=== PATIENT | female | born 1990 | race Caucasian/White ===

== ENCOUNTER 2017-09-01 08:19 | Emergency (ER) | payer SELFPAY ==
[2017-09-01 09:04] VITALS: BP 116/72
--- NOTE | 2017-09-01 09:14 | ED ---
Throat Pain/Nasal Congestion - HPI Summary HPI Summary: 27 yr old with headache, runny nose, cough, congestion, myalgias, fever, chills. Onset a little over a day ago. The patient has a boyfriend that had same symptoms and was tested for influenza but negative. The patient verbalizes that she does not want to be tested for influenza. She denies CP, SOB. She has no other complaints. - History of Current Complaint Chief Complaint: UCGeneralIllness Time Seen by Provider: 09/01/17 09:05 - Allergies/Home Medications Allergies/Adverse Reactions: Allergies Allergy/AdvReac Type Severity Reaction Status Date / Time No Known Allergies Allergy Verified 09/01/17 09:00 Home Medications: Home Medications Pseudoephedrine HCL ER TAB* [Sudafed 12 Hour*] 120 mg PO BID 09/01/17 [History Confirmed 09/01/17] PMH/Surg Hx/FS Hx/Imm Hx - Surgical History Hx Anesthesia Reactions: No Infectious Disease History: No Infectious Disease History: Denies: Hx Clostridium Difficile, Hx Hepatitis, Hx Human Immunodeficiency Virus (HIV), Hx of Known/Suspected MRSA, Hx Shingles, Hx Tuberculosis, Hx Known/ Suspected VRE, Hx Known/Suspected VRSA, History Other Infectious Disease, Traveled Outside the [place] in Last 30 Days - Family History Known Family History: Negative: Hypertension - Social History Occupation: Employed Full-time Alcohol Use: Occasionally Substance Use Type: Reports: None Smoking Status (MU): Light Every Day Tobacco Smoker Type: Cigarettes Amount Used/How Often: 1/2 ppd Length of Time of Smoking/Using Tobacco: started ~ age 16 Review of Systems Constitutional: Negative Positive: Nasal Discharge Positive: Cough Positive: Myalgia All Other Systems Reviewed And Are Negative: Yes Physical Exam Triage Information Reviewed: Yes Vital Signs On Initial Exam: Initial Vitals Temp Pulse Resp BP Pulse Ox 98 F 98 18 116/72 99 09/01/17 08:54 09/01/17 08:54 09/01/17 08:54 09/01/17 08:54 09/01/17 08:54 Vital Signs Reviewed: Yes Appearance: Positive: Well-Appearing, No Pain Distress Skin: Positive: Warm, Skin Color Reflects Adequate Perfusion Head/Face: Positive: Normal Head/Face Inspection Eyes: Positive: EOMI ENT: Positive: Pharynx normal, Nasal congestion, Nasal drainage, TMs normal Neck: Positive: Nontender Respiratory/Lung Sounds: Positive: Clear to Auscultation, Breath Sounds Present Cardiovascular: Positive: RRR. Negative: Murmur Abdomen Description: Positive: Nontender Musculoskeletal: Positive: Strength/ROM Intact Neurological: Positive: Sensory/Motor Intact, Alert, Oriented to Person Place, Time, CN Intact II-III - [place] Coma Scale Best Eye Response: 4 - Spontaneous Best Motor Response: 6 - Obeys Commands Best Verbal Response: 5 - Oriented Coma Scale Total: 15 Diagnostics - Vital Signs Vital Signs Temp Pulse Resp BP Pulse Ox 09/01/17 08:54 98 F 98 18 116/72 99 - Laboratory Lab Statement: Any lab studies that have been ordered have been reviewed, and results considered in the medical decision making process. EENT Course/Dx - Course Course Of Treatment: 27 yr old female with URI symptoms. DC home stable condition. - Diagnoses Provider Diagnoses: Upper respiratory infection Discharge - Discharge Plan Condition: Good Disposition: HOME Patient Education Materials: Upper Respiratory Infection (ED) Forms: *Work Release Referrals: Nadine Kate MD [Primary Care Provider] - 2 Days
== END 2017-09-01 09:20 | disposition home or self-care (01) ==
LOC: UCCORT 08:19
DX: J06.9 Acute upper respiratory infection, unspecified (principal); F17.210 Nicotine dependence, cigarettes, uncomplicated
CPT/HCPCS: 99211; G0463

== ENCOUNTER 2017-12-03 16:26 | Emergency (ER) | payer SELFPAY ==
[2017-12-03 16:43] VITALS: BP 129/80
--- NOTE | 2017-12-03 17:01 | UC ---
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 She states that she has self treated with multiple over-the- counter medications however it always seems to return. She also notes that her feet sweat often and she wears sandals whenever possible. Over the past week she's developed some mild redness between her right fourth and fifth toes. Patient states that she thinks it may be a blister and she thinks that the skin is infected. She denies any joint pain. She has no history of diabetes and has no fever or chills. She states she did squeeze the area but nothing came out. - History of Current Complaint Chief Complaint: Ld Stated Complaint: BLISTER FOOT Time Seen by Provider: 12/03/17 16:48 Hx Obtained From: Patient Hx Last Menstrual Period: 08/13/17 Onset/Duration: Gradual Onset Timing: Constant Pain Intensity: 6 Aggravating: nothing Alleviating: nothing Associated Signs & Symptoms: Negative: Fever - Allergy/Home Medications Allergies/Adverse Reactions: Allergies Allergy/AdvReac Type Severity Reaction Status Date / Time No Known Allergies Allergy Verified 12/03/17 16:41 PMH/Surg Hx/FS Hx/Imm Hx - Additional Past Medical History Additional PMH: athletes foot - Surgical History Surgical History: None - Family History Known Family History: Positive: None Negative: Hypertension - Social History Occupation: Employed Full-time Alcohol Use: Occasionally Substance Use Type: None Smoking Status (MU): Light Every Day Tobacco Smoker Type: Cigarettes Amount Used/How Often: 1/2 ppd Length of Time of Smoking/Using Tobacco: started ~ age 16 Household Exposure Type: Cigarettes - Immunization History Most Recent Influenza Vaccination: NOT IN 2016 Vaccination Up to Date: Yes Review of Systems Constitutional: Negative Skin: Rash - between toes of R foot Eyes: Negative ENT: Negative Respiratory: Negative Cardiovascular: Negative Gastrointestinal: Negative Genitourinary: Negative Motor: Negative Neurovascular: Negative Musculoskeletal: Negative Neurological: Negative Psychological: Negative Is Patient Immunocompromised?: No All Other Systems Reviewed And Are Negative: Yes Physical Exam Triage Information Reviewed: Yes Appearance: Well-Appearing Vital Signs: Initial Vital Signs Temp 98.7 F 12/03/17 16:36 Pulse 83 12/03/17 16:36 Resp 16 12/03/17 16:36 BP 129/80 12/03/17 16:36 Pulse Ox 100 12/03/17 16:36 Eyes: Positive: Conjunctiva Clear ENT: Positive: Normal ENT inspection Neck: Positive: Supple, Nontender, No Lymphadenopathy Respiratory: Positive: Lungs clear, Normal breath sounds Cardiovascular: Positive: RRR, No Murmur Abdomen Description: Positive: Nontender, No Organomegaly, Soft Bowel Sounds: Positive: Present Musculoskeletal: Positive: ROM Intact Neurological: Positive: Alert Psychological: Positive: Age Appropriate Behavior Skin Exam: Normal, Other - Skin between toes of R foot are macerated with some mild peeling. sSpace between the 4th/5th toes has some mild erythema and tenderness but is not fluctuant. Rest of foot is unremarkable and non tender. s/ v/m function is intact. Course/Dx - Course Course Of Treatment: c/w fungal infection and mild skin infection between 4/5th toes. will tx po antibiotic and topical antifungal cream - Differential Dx - Multi-Symptom Provider Diagnoses: Tinea pedis R foot. Skin infection between 4th/5th toes R foot Discharge - Sign-Out/Discharge Documenting (check all that apply): Discharge/Admit/Transfer - Discharge Plan Condition: Stable Disposition: HOME Prescriptions: Cephalexin CAP* [Keflex CAP*] 500 mg PO TID #21 cap Ketoconazole 2 % CREAM (NF) [Nizoral 2% CREAM (NF)] 1 applic TOPICAL BID 14 Days #1 tube Patient Education Materials: Athlete's Foot (ED), Cellulitis (DC) Referrals: Nadine Kate MD [Primary Care Provider] - 5 Days - Billing Disposition and Condition Condition: STABLE Disposition: HOME
== END 2017-12-03 17:13 | disposition home or self-care (01) ==
LOC: UCCORT 16:26
DX: B35.3 Tinea pedis (principal); F17.210 Nicotine dependence, cigarettes, uncomplicated
CPT/HCPCS: 99212; G0463